=== PATIENT | female | born 1990 | race Caucasian/White ===

== ENCOUNTER 2016-09-22 19:00 | Emergency (ER) | payer MEDICAID ==
[2016-09-22 19:13] VITALS: RESP 16; TEMP 98.4
[2016-09-22] MEDS ORDERED: IBUPROFEN 600 MG TAB PO ONE (19:22)
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
[2016-09-22] MEDS ORDERED: HYDROCOD/APAP 5/325 PREPACK#6 BTL TAKEHOME ONE (20:31)
[2016-09-22 20:50] VITALS: BP 100/65; PULSE 66; O2SAT 96
== END 2016-09-22 20:50 | disposition home or self-care (01) ==
PROC: 2W3RX1Z Immobilization of Left Lower Leg using Splint (ICD-10-PCS; principal; 2016-09-22)
DX: S82.55XA Nondisplaced fracture of medial malleolus of left tibia, initial encounter for closed fracture (principal); Z91.040 Latex allergy status; V28.4XXA Motorcycle driver injured in noncollision transport accident in traffic accident, initial encounter; Y92.410 Unspecified street and highway as the place of occurrence of the external cause; Y93.89 Activity, other specified